=== PATIENT | male | born 1980 | race Caucasian/White ===

== ENCOUNTER → 2017-03-19 | Outpatient (CLI) | payer BC ==
[~2017-03-19] MED LIST: CLON1TAB3 PO; CNC/54 PO; FLUO40CA8 PO; LITH600C PO; LORA-741 PO; METH1TAB10 PO; METH5TAB4 PO; SERT-234 PO; TRAZ-119 PO
[2017-03-19 17:18] LABS: BASO % 0.4 %; BASO ABS # 0.03 K/uL (0-0.2); COMPLETE YES; EOS % 2.9 %; IG% 0.1 %; LYMPH % 17.4 %; LYMPH ABS # 1.19 K/uL (1.2-3.4); MEAN CELL VOLUME 82.4 fL (80-100); MEAN CORPUSCULAR HEMOGLOBIN 29.4 pg (25-34); MEAN CORPUSCULAR HGB CONC 35.7 g/dl (32-36); MEAN PLATELET VOLUME 10.4 fL (7.4-10.4); MONO % 6.6 %; NEUT % 72.6 %; PLATELET COUNT 223 K/uL (130-400); WHITE BLOOD COUNT 6.84 K/uL (4.8-10.8)
[2017-03-19 17:45] LABS: ALT/SGPT 120 U/L (12-78); AST/SGOT 38 U/L (15-37); BLOOD UREA NITROGEN 12 mg/dl (7-18); BUN/CREATININE RATIO 12.3 (10-20); CALCIUM 9.2 mg/dl (8.5-10.1); CARBON DIOXIDE 26 mmol/L (21-32); CHLORIDE 108 mmol/L (98-107); GLUCOSE 96 mg/dl (70-99); POTASSIUM 3.7 mmol/L (3.5-5.1); SODIUM 140 mmol/L (136-145)
[2017-03-19 17:56] LABS: ALB/GLOB RATIO 1.4 (0.9-2); ALKALINE PHOSPHATASE 77 U/L (45-117)
== END | disposition home or self-care (01) ==
LOC: C.LAB1850 16:26
PROVIDERS: ATTEND Psychiatry & Neurology Psychiatry
DX: F31.75 Bipolar disorder, in partial remission, most recent episode depressed (principal); F41.1 Generalized anxiety disorder; R41.840 Attention and concentration deficit; Z79.899 Other long term (current) drug therapy; E55.9 Vitamin D deficiency, unspecified

== ENCOUNTER 2017-03-23 09:04 | Emergency (ER) | payer BC ==
[~2017-03-23] VITALS: Ht 172.7 cm; Wt 105.4 kg
[~2017-03-23 09:04] MED LIST changes: -CLON1TAB3 PO; -CNC/54 PO; -FLUO40CA8 PO; -LITH600C PO; -METH1TAB10 PO; -METH5TAB4 PO
[2017-03-23 09:06] VITALS: TEMP 36.8; Ht 172.7 cm; Wt 105.4 kg
[2017-03-23] MEDS ORDERED: SODIUM CHLORIDE 0.9% 1000ML 1,000 ML IV STA (09:37)
[2017-03-23] MEDS ORDERED: CLON1TAB3 PO (09:55)
[2017-03-23] MEDS ORDERED: METH1TAB10 PO (09:55)
[2017-03-23] MEDS ORDERED: LITH600C PO (09:55)
[2017-03-23] MEDS ORDERED: FLUO40CA8 PO (09:55)
[2017-03-23] MEDS ORDERED: CNC/54 PO (09:55)
[2017-03-23] MEDS ORDERED: METH5TAB4 PO (09:55)
[2017-03-23 09:58] LABS: BASO % 0.4 %; BASO ABS # 0.02 K/uL (0-0.2); COMPLETE YES; EOS % 2.6 %; HEMATOCRIT 42.3 % (42-52); LYMPH % 20.5 %; LYMPH ABS # 1.09 K/uL (1.2-3.4); MEAN CORPUSCULAR HEMOGLOBIN 29.1 pg (25-34); MEAN CORPUSCULAR HGB CONC 35.5 g/dl (32-36); MEAN PLATELET VOLUME 10.1 fL (7.4-10.4); MONO % 6.6 %; NEUT % 69.9 %; PLATELET COUNT 203 K/uL (130-400); RED BLOOD COUNT 5.16 M/uL (4.7-6.1); WHITE BLOOD COUNT 5.33 K/uL (4.8-10.8)
[2017-03-23 10:10] LABS: PROTHROMBIN TIME (PATIENT) 10.8 SECONDS (9.0-12.0)
--- NOTE | 2017-03-23 10:12 | DIAGNOSTIC IMAGING REPORT ---
CT HEAD WITHOUT CONTRAST (CT) CLINICAL HISTORY: Altered mental status. Weakness. Lightheadedness. Confusion. COMPARISON STUDY: No previous studies for comparison. TECHNIQUE: Axial CT of the brain is performed from the vertex to the skull base. IV contrast was not administered for this examination. CT DOSE: 614.27 mGy.cm FINDINGS: No intra or extra-axial mass lesions are visualized. There is no CT evidence of acute cortical infarction. There is no evidence of midline shift. There is no acute hemorrhage. No calvarial fractures are visualized. There is no evidence of pathologic ventricular dilatation. There is no evidence of acute sinusitis IMPRESSION: Normal noncontrast head CT. Electronically signed by: Reji Maurer M.D. 03/23/2017 10:11 AM Dictated Date/Time: 03/23/2017 10:10 AM
[2017-03-23 10:17] LABS: ALT/SGPT 109 U/L (12-78); AST/SGOT 29 U/L (15-37); BLOOD UREA NITROGEN 12 mg/dl (7-18); CALCIUM 8.9 mg/dl (8.5-10.1); CARBON DIOXIDE 27 mmol/L (21-32); CHLORIDE 109 mmol/L (98-107); GLUCOSE 127 mg/dl (70-99); MAGNESIUM 2.1 mg/dl (1.8-2.4); POTASSIUM 3.5 mmol/L (3.5-5.1); SODIUM 142 mmol/L (136-145)
--- NOTE | 2017-03-23 10:24 | DIAGNOSTIC IMAGING REPORT ---
CHEST ONE VIEW PORTABLE CLINICAL HISTORY: Weakness, dizziness, altered mental status COMPARISON STUDY: 12/13/2009 FINDINGS: The cardiac silhouette is enlarged with a somewhat globular configuration. There is no focal pulmonary consolidation. There are no pleural effusions.[ IMPRESSION: Enlarged cardiac silhouette. No evidence of failure. No evidence of focal pulmonary consolidation Electronically signed by: Reji Maurer M.D. 03/23/2017 10:23 AM Dictated Date/Time: 03/23/2017 10:22 AM
[2017-03-23 10:25] LABS: ALKALINE PHOSPHATASE 79 U/L (45-117)
--- NOTE | 2017-03-23 11:02 | EMERGENCY ROOM VISIT NOTE ---
History Report prepared by Jose: Buzz Hernandez Under the Supervision of: Dr. Marco Yang D.O. First contact with patient: 09:36 Chief Complaint: DIZZY Stated Complaint: DIZINESS - LIGHTHEADED - ONE SIDED NUMBNESS Nursing Triage Summary: dizziness when I tried to walked into a room while turning the corner. it felt like the room was still but I was moving. had another episode like this last week History of Present Illness The patient is a 36 year old male who presents to the Emergency Room with complaints of dizziness that occurred this morning. He also had a similar episode of dizziness last week. When the patient woke up to go to the bathroom this morning, he turned the corner into the lavatory. He states that it then felt like the room was still but he was moving. He lost his balance and stumbled forward. He lowered himself to the ground and noticed his head felt "very weird." He tried calling his with his cell phone, but noticed that his right side was relatively numb. Once he stood back up, he felt very uneasy on his feet. This episode lasted about 45 minutes. He was told after last week' s episode, that if it occurs again, he should come to the emergency room to get checked. He takes Klonopin as needed. Source of History: patient Onset: this morning Position: other (global) Symptom Intensity: moderate Quality: other (Dizziness) Timing: resolved Modifying Factors (Worsening): movement Associated Symptoms: + numbness, No LOC, No headache Note: He experienced lightheadedness. Review of Systems See HPI for pertinent positives & negatives. A total of 10 systems reviewed and were otherwise negative. Past Medical & Surgical Medical Problems: (1) ASTHMA, UNSPECIFIED (2) BIPOLAR DISORDER, UNSPECIFIED (3) DEPRESSIVE DISORDER NEC (4) PANIC DISORDER WITHOUT AGORAPHOBIA Family History Patient reports no known family medical history. Social History Smoking Status: Never Smoker Smokeless Tobacco Use: No Drug Use: none Marital Status: Housing Status: lives with family Occupation Status: employed Current/Historical Medications Scheduled Clonazepam (Klonopin), 1 MG PO TID Fluoxetine (Prozac), 40 MG PO DAILY [place] Carbonate ([place]acra Carbonate), 1,200 MG PO DAILY Methylphenidate Hcl (Concerta), 54 MG PO DAILY Methylphenidate Hcl (Ritalin), 5 MG PO DAILY Methylphenidate Hcl (Ritalin), 10 MG PO DAILY Allergies Uncoded Allergies: NKDA (Allergy, Mild, NONE, 11/24/09) Physical Exam Vital Signs Date Time Temp Pulse Resp B/P Pulse Ox O2 Delivery O2 Flow Rate FiO2 03/23/17 11:26 80 18 135/80 98 Room Air 03/23/17 09:38 78 142/80 106 146/86 94 154/84 03/23/17 09:38 82 03/23/17 09:06 36.8 86 18 124/85 96 Room Air Physical Exam VITAL SIGNS: were reviewed as above. GENERAL:Non-toxic in appearance. SKIN: Warm dry and pink. HEAD: Normocephalic and atraumatic. OROPHARYNX: Is clear and moist NECK: Supple without lymphadenopathy or meningismus. LUNGS: clear. HEART: Regular rate and rhythm. ABDOMEN: Soft and nontender. EXTREMITIES: Warm and well perfused. NEUROLOGICALLY: Awake alert and oriented without focal deficit. Cranial nerves 2 -12 are intact. There is no pronator drift. Cerebellar testing is within normal limits. There is no nystagmus. There is no facial droop. Speech is clear. Vision is grossly normal. MUSCULOSKELETAL: Good muscle tone. No evidence of trauma. Medical Decision & Procedures ER Provider Diagnostic Interpretation: Radiology results as stated below per my review and radiologist interpretation: CT HEAD WITHOUT CONTRAST (CT) CLINICAL HISTORY: Altered mental status. Weakness. Lightheadedness. Confusion. COMPARISON STUDY: No previous studies for comparison. TECHNIQUE: Axial CT of the brain is performed from the vertex to the skull base. IV contrast was not administered for this examination. CT DOSE: 614.27 mGy.cm FINDINGS: No intra or extra-axial mass lesions are visualized. There is no CT evidence of acute cortical infarction. There is no evidence of midline shift. There is no acute hemorrhage. No calvarial fractures are visualized. There is no evidence of pathologic ventricular dilatation. There is no evidence of acute sinusitis IMPRESSION: Normal noncontrast head CT. Electronically signed by: Reji Maurer M.D. 03/23/2017 10:11 AM Dictated Date/Time: 03/23/2017 10:10 AM CHEST ONE VIEW PORTABLE CLINICAL HISTORY: Weakness, dizziness, altered mental status COMPARISON STUDY: 12/13/2009 FINDINGS: The cardiac silhouette is enlarged with a somewhat globular configuration. There is no focal pulmonary consolidation. There are no pleural effusions.[ IMPRESSION: Enlarged cardiac silhouette. No evidence of failure. No evidence of focal pulmonary consolidation Electronically signed by: Reji Maurer M.D. 03/23/2017 10:23 AM Dictated Date/Time: 03/23/2017 10:22 AM Laboratory Results 03/23/17 09:35 Red Blood Count 5.16, Mean Corpuscular Volume 82.0, Mean Corpuscular Hemoglobin 29.1, Mean Corpuscular Hemoglobin Concent 35.5, Mean Platelet Volume 10.1, Neutrophils (%) (Auto) 69.9, Lymphocytes (%) (Auto) 20.5, Monocytes (%) (Auto) 6.6, Eosinophils (%) (Auto) 2.6, Basophils (%) (Auto) 0.4, Neutrophils # (Auto) 3.73, Lymphocytes # (Auto) 1.09, Monocytes # (Auto) 0.35, Eosinophils # (Auto) 0.14, Basophils # (Auto) 0.02 03/23/17 09:35 Test 03/23/17 09:35 03/23/17 11:01 White Blood Count 5.33 K/uL (4.8-10.8) Red Blood Count 5.16 M/uL (4.7-6.1) Hemoglobin 15.0 g/dL (14.0-18.0) Hematocrit 42.3 % (42-52) Mean Corpuscular Volume 82.0 fL (80-100) Mean Corpuscular Hemoglobin 29.1 pg (25-34) Mean Corpuscular Hemoglobin Concent 35.5 g/dl (32-36) Platelet Count 203 K/uL (130-400) Mean Platelet Volume 10.1 fL (7.4-10.4) Neutrophils (%) (Auto) 69.9 % Lymphocytes (%) (Auto) 20.5 % Monocytes (%) (Auto) 6.6 % Eosinophils (%) (Auto) 2.6 % Basophils (%) (Auto) 0.4 % Neutrophils # (Auto) 3.73 K/uL (1.4-6.5) Lymphocytes # (Auto) 1.09 K/uL (1.2-3.4) Monocytes # (Auto) 0.35 K/uL (0.11-0.59) Eosinophils # (Auto) 0.14 K/uL (0-0.5) Basophils # (Auto) 0.02 K/uL (0-0.2) RDW Standard Deviation 39.7 fL (36.4-46.3) RDW Coefficient of Variation 13.1 % (11.5-14.5) Immature Granulocyte % (Auto) 0.0 % Immature Granulocyte # (Auto) 0.00 K/uL (0.00-0.02) Prothrombin Time 10.8 SECONDS (9.0-12.0) Prothromb Time International Ratio 1.0 (0.9-1.1) Activated Partial Thromboplast Time 26.4 SECONDS (21.0-31.0) Partial Thromboplastin Ratio 1.0 Anion Gap 6.0 mmol/L (3-11) Est Creatinine Clear Calc Drug Dose 121.3 ml/min Estimated GFR () 112.5 Estimated GFR (Non- 97.1 BUN/Creatinine Ratio 12.0 (10-20) Calcium Level 8.9 mg/dl (8.5-10.1) Magnesium Level 2.1 mg/dl (1.8-2.4) Total Bilirubin 0.8 mg/dl (0.2-1) Direct Bilirubin 0.1 mg/dl (0-0.2) Aspartate Amino Transf (AST/SGOT) 29 U/L (15-37) Alanine Aminotransferase (ALT/SGPT) 109 U/L (12-78) Alkaline Phosphatase 79 U/L (45-117) Total Creatine Kinase 63 U/L (39-308) Creatine Kinase MB 0.6 ng/ml (0.5-3.6) Creatine Kinase MB Ratio 1.0 (0-3.0) Troponin I < 0.015 ng/ml (0-0.045) Total Protein 7.3 gm/dl (6.4-8.2) Albumin 4.3 gm/dl (3.4-5.0) Lipase 108 U/L (73-393) Thyroid Stimulating Hormone (TSH) 1.020 uIu/ml (0.300-4.500) Urine Color YELLOW Urine Appearance CLEAR (CLEAR) Urine pH 7.5 (4.5-7.5) Urine Specific [place] 1.014 (1.000-1.030) Urine Protein NEG (NEG) Urine Glucose (UA) NEG (NEG) Urine Ketones NEG (NEG) Urine Occult Blood NEG (NEG) Urine Nitrite NEG (NEG) Urine Bilirubin NEG (NEG) Urine Urobilinogen NEG (NEG) Urine Leukocyte Esterase NEG (NEG) Urine WBC (Auto) 1-5 /hpf (0-5) Urine RBC (Auto) 0-4 /hpf (0-4) Urine Hyaline Casts (Auto) 0 /lpf (0-5) Urine Epithelial Cells (Auto) 0-5 /lpf (0-5) Urine Bacteria (Auto) NEG (NEG) Laboratory results as stated above per my review. Medications Administered Medications (Trade) Dose Ordered Sig/Vannesa Route Start Time Stop Time Status Last Admin Dose Admin Sodium Chloride (Nss 1000ml) 1,000 ml @ 999 mls/hr Q1H1M STAT IV 03/23/17 09:37 03/23/17 10:37 DC 03/23/17 09:37 999 MLS/HR ECG Indication: other (Dizziness) Rate (beats per minute): 82 Rhythm: normal sinus Findings: no acute ischemic change, no ectopy ED Course 0936: Previous medical records were reviewed. The patient was evaluated in room B12. A complete history and physical examination was performed. 0937: Ordered Sodium Chloride 1000 ml @ 999 mls/hr IV 1105: On reevaluation, the patient is resting. I discussed the results and findings with the patient. He verbalized agreement of the treatment plan. He was discharged home. Medical Decision Differential includes acute coronary syndrome, myocardial infarction, CVA, TIA, anemia, infection, pneumonia, UTI, pyelonephritis, poor nutrition, dehydration, electrolyte disturbance, hypoglycemia. This is a 36-year-old male who presents to the ED with a chief complaint of dizziness. This patient states that he was at home this morning and walking to the bathroom when he felt like he lost control himself. The patient states that he somewhat fell but was able to brace himself and lowered himself to the ground. He denies injury. The patient states that he felt a little unusual in his head for about 25-40 minutes afterwards. He states that he had one prior episode where he wrote an email to his boss that was not completely well written and he lost about 27 hours of his day. He has an appointment to see his PCP later today for follow-up on this. The patient has no other complaints this time and feels normal at this time. His vital signs are normal. His physical exam and neurologic exam was normal. CT scan of the brain did not show acute process. A chest x-ray showed a slightly enlarged heart but otherwise no acute process. CBC, TSH, troponin and complete metabolic panel are unremarkable. The patient was told results. He is felt to be stable for discharge. Outpatient echocardiogram and neurology follow-up might be beneficial. Impression Primary Impression: Dizziness Scribe Attestation The scribe's documentation has been prepared under my direction and personally reviewed by me in its entirety. I confirm that the note above accurately reflects all work, treatment, procedures, and medical decision making performed by me. Departure Information Dispostion Home / Self-Care Referrals Piedad Moore C.R.N.P. (PCP) Forms HOME CARE DOCUMENTATION FORM, IMPORTANT VISIT INFORMATION Patient Instructions My [facility] Additional Instructions Your chest x-ray today revealed a slightly enlarged heart. It is unclear if this is significant or related to your symptoms. An outpatient echocardiogram might be beneficial for further evaluation of this. Talk to your doctor about this. Neurology follow-up is recommended for further evaluation of your symptoms. Follow-up with your doctor today as scheduled. Talk to them about the results of your tests.
[2017-03-23 11:26] VITALS: BP 135/80; PULSE 80; O2SAT 98
[2017-03-23 11:26] LABS: URINE APPEARANCE CLEAR (CLEAR); URINE BILIRUBIN NEG (NEG); URINE COLOR YELLOW; URINE EPITHELIAL CELL AUTO 0-5 /lpf (0-5); URINE NITRITE NEG (NEG); URINE PH 7.5 (4.5-7.5); URINE SPECIFIC GRAVITY 1.014 (1.000-1.030); UROBILINOGEN NEG (NEG); ZZUR CULT IF INDIC CLEAN CATCH NO
[2017-03-23 11:27] LABS: MANUAL MICROSCOPIC REQUIRED? NO; REVIEW REQ? NO
== END 2017-03-23 11:32 | disposition home or self-care (01) ==
LOC: C.EDB 09:05
DX: R42 Dizziness and giddiness (principal); J45.909 Unspecified asthma, uncomplicated; F31.9 Bipolar disorder, unspecified; F33.41 Major depressive disorder, recurrent, in partial remission

== ENCOUNTER → 2017-05-07 | Outpatient (CLI) | payer BC ==
[~2017-05-07] MED LIST changes: +CLON1TAB3 PO; +CNC/54 PO; +FLUO40CA8 PO; +GADAVIST IV PRN; +LITH600C PO; -LORA-741 PO; +METH1TAB10 PO; +METH5TAB4 PO; -SERT-234 PO; -TRAZ-119 PO
--- NOTE | 2017-05-07 09:08 | DIAGNOSTIC IMAGING REPORT ---
NECK MRA HISTORY: R42 DfhyppfikN34.0 AkhcorswS70.3 Memory lossR51 [id number] TECHNIQUE: Irso-pj-zzbavp and gadolinium-enhanced MRA of the neck was performed both before and after the intravenous administration of contrast. All measurements were calculated based on NASCET criteria. COMPARISON STUDY: None. FINDINGS: The aortic arch and proximal great vessels are widely patent. There is no significant stenosis, occlusion, or dissection identified within the bilateral common carotid, internal carotid, or vertebral arteries. IMPRESSION: No significant stenosis, occlusion, or dissection identified within the carotid or vertebral arteries. Electronically signed by: Reji Maurer M.D. 05/07/2017 9:06 AM Dictated Date/Time: 05/07/2017 9:05 AM
--- NOTE | 2017-05-07 09:13 | DIAGNOSTIC IMAGING REPORT ---
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 Electronically signed by: Giovanni Valdez M.D. 05/19/2017 12:07 PM Dictated Date/Time: 05/14/2017 1:28 PM ORIGINAL REPORT Brain MRA HISTORY: Headaches R42 UdehdqvmqO45.0 KxlgutdiI36.3 Memory lossR51 [id number] TECHNIQUE: 3-D reud-rv-fryzef MRA of the brain was performed without contrast. COMPARISON STUDY: None. FINDINGS: 2.5 cm aneurysm of the anterior communicating artery at the origins of the right as well as left middle cerebral vascular distribution. Slight ectasia of the mid and middle cerebral arteries bilaterally although a second aneurysm is not identified. Anterior middle and posterior cerebral circulation. A be unremarkable. The vertebral basilar system is unremarkable. There is no significant stenotic process. IMPRESSION: 1. 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 2. Subtle scattered additional areas of ectasia. 3. No additional areas of true aneurysm formation or stenotic change. Electronically signed by: Giovanni Valdez M.D. 05/07/2017 9:12 AM Dictated Date/Time: 05/07/2017 9:06 AM
--- NOTE | 2017-05-07 10:50 | DIAGNOSTIC IMAGING REPORT ---
BRAIN COMBO HISTORY: 36-year-old male presents with memory loss, blurred vision and slurred speech. Recent fall with right-sided numbness. COMPARISON: CT head 03/23/2017, MRA head and neck 05/07/2017. TECHNIQUE: Multiplanar multisequence MRI of the brain was obtained both with and without the use of 10 mL gadavist. FINDINGS: There is no restricted diffusion to suggest acute ischemia. The soft tissues about the neck appear unremarkable on the foot orthopedist images. Midline structures including the corpus callosum, brainstem, optic chiasm and pituitary gland appear to be within normal limits on the sagittal T1 series. No cerebellar tonsillar herniation. No abnormal T2/FLAIR signal abnormality identified within the brain. Ventricles, cisterns and sulci are within normal limits. No mass, hydrocephalus, abnormal extra-axial collection or hemorrhage. No abnormal enhancement. The vascular flow voids at the level of the skull base appear patent. There is minimal mucosal thickening of the anterior left ethmoid air cells. The mastoid air cells and remaining sinuses are clear. IMPRESSION: 1. No acute intracranial abnormality. Negative for hemorrhage or acute ischemia. 2. No abnormal enhancement. 3. Minimal left ethmoid sinus disease. Electronically signed by: Jose Angel Sevilla 05/07/2017 9:55 AM Dictated Date/Time: 05/07/2017 9:06 AM
== END | disposition home or self-care (01) ==
LOC: C.MRI 07:19
PROVIDERS: ATTEND Physician Assistant
DX: R42 Dizziness and giddiness (principal); R41.3 Other amnesia; R20.0 Anesthesia of skin; R51 Headache

== ENCOUNTER → 2017-05-15 | Outpatient (CLI) | payer BC ==
[~2017-05-15] MED LIST changes: -GADAVIST IV PRN
--- NOTE | 2017-05-16 17:31 | EEG Procedure Note ---
EEG Procedure Note Date of Service May 15, 2017. Start / End Times Start Time: 1:26 PM End Time: 1:46 PM Referring Physician Allison Case History This is a 36-year-old male with dizziness, headache, memory loss, and numbness. EEG for further evaluation of possible seizure etiology Home Medication List Scheduled Clonazepam (Klonopin), 1 MG PO TID Fluoxetine (Prozac), 40 MG PO DAILY [place] Carbonate ([place] Carbonate), 1,200 MG PO DAILY Methylphenidate Hcl (Concerta), 54 MG PO DAILY Methylphenidate Hcl (Ritalin), 5 MG PO DAILY Methylphenidate Hcl (Ritalin), 10 MG PO DAILY Description This is a 21 electrode EEG with a single channel dedicated to limited EKG. The electrodes were placed in accordance with the International 10-20 system. At the start of the recording the patient was in an awake state. Background was well organized and composed of symmetric mixed alpha and beta frequencies. There was a symmetric well-formed moderate amplitude 10-11 Hz posterior dominant rhythm that was reactive to eye opening and closure. Hyperventilation with good effort produced no abnormalities. Intermittent photic stimulation at various frequencies produced no abnormalities. Sleep was indicated by vertex waves and symmetric sleep spindles. Interpretation This is a normal awake and asleep routine EEG. There was no electrographic seizures or epileptiform discharges. Clinical Correlation A normal EEG does not rule out epilepsy if there is a strong clinical suspicion.
== END | disposition home or self-care (01) ==
LOC: C.NEUR 13:00
PROVIDERS: ATTEND Physician Assistant
DX: R42 Dizziness and giddiness (principal); R51 Headache; R41.3 Other amnesia; R20.0 Anesthesia of skin

== ENCOUNTER → 2017-05-16 | Outpatient (CLI) | payer BC ==
--- NOTE | 2017-05-16 12:17 | DIAGNOSTIC IMAGING REPORT ---
HEAD CTA HISTORY: Mental status change aneurysm TECHNIQUE: Multiaxial CT images of the head were performed both before and after the intravenous administration of contrast to evaluate the major cerebral vessels. Maximum intensity projection images were also obtained. COMPARISON: MRA dated 05/07/2017 FINDINGS: There is no mass, hematoma, midline shift, or acute infarct. Visualized intracranial internal carotid arteries, distal vertebral arteries, and basilar artery are widely patent. There is no significant stenosis, occlusion, or aneurysm seen within the bilateral ACAs, MCAs, or collections assistant. The previously described 2.5 mm aneurysm of the anterior communicating artery appears to be related to vascular ectasia. True aneurysm is not identified. IMPRESSION: 1. Negative CT of the brain. 2. Intracranial vascular is considered negative. 3. Previously described 2.5 mm aneurysm of the anterior communicating artery appears to relate to overlap artifact and slight vascular ectasia. Electronically signed by: Giovanni Valdez M.D. 05/16/2017 12:15 PM Dictated Date/Time: 05/16/2017 12:10 PM
== END | disposition home or self-care (01) ==
LOC: C.CTS 11:28
PROVIDERS: ATTEND Physician Assistant
DX: R90.89 Other abnormal findings on diagnostic imaging of central nervous system (principal)

== ENCOUNTER → 2017-10-12 | Outpatient (CLI) | payer BC ==
--- NOTE | 2017-10-12 10:39 | DIAGNOSTIC IMAGING REPORT ---
CHEST 2 VIEWS ROUTINE CLINICAL HISTORY: R05,R06.02,M54.9 dyspnea. Fever. Chest pain. COMPARISON STUDY: 03/23/2017 FINDINGS: The bones soft tissues and hemidiaphragms are normal. The cardiomediastinal silhouette is normal. The lungs are clear. The pulmonary vasculature is normal. IMPRESSION: Negative chest. The above report was generated using voice recognition software. It may contain grammatical, syntax or spelling errors. Electronically signed by: Giovanni Valdez M.D. 10/12/2017 10:38 AM Dictated Date/Time: 10/12/2017 10:37 AM
== END | disposition home or self-care (01) ==
LOC: C.RAD1850 10:28
PROVIDERS: ATTEND Nurse Practitioner Family
DX: R05 Cough (principal); R06.02 Shortness of breath; M54.9 Dorsalgia, unspecified

== ENCOUNTER → 2017-10-25 | Outpatient (CLI) | payer BC | END | disposition home or self-care (01) | LOC: C.PATHSPEC 18:17 | PROVIDERS: ATTEND Urology | DX: Z30.2 Encounter for sterilization (principal) ==

== ENCOUNTER → 2017-11-19 | Outpatient (CLI) | payer OTHER ==
[2017-11-19 18:50] LABS: BASO % 0.5 %; BASO ABS # 0.03 K/uL (0-0.2); EOS % 2.4 %; EOS ABS # 0.16 K/uL (0-0.5); HEMATOCRIT 40.2 % (42-52); HEMOGLOBIN 14.2 g/dL (14.0-18.0); IG# 0.01 K/uL (0.00-0.02); LYMPH % 22.3 %; LYMPH ABS # 1.46 K/uL (1.2-3.4); MEAN CELL VOLUME 82.4 fL (80-100); MEAN CORPUSCULAR HEMOGLOBIN 29.1 pg (25-34); MEAN CORPUSCULAR HGB CONC 35.3 g/dl (32-36); MEAN PLATELET VOLUME 10.7 fL (7.4-10.4); MONO % 6.6 %; MONO ABS # 0.43 K/uL (0.11-0.59); NEUT ABS # 4.45 K/uL (1.4-6.5); PLATELET COUNT 223 K/uL (130-400); RED CELL DISTRIBUTION WIDTH CV 12.9 % (11.5-14.5); RED CELL DISTRIBUTION WIDTH SD 38.6 fL (36.4-46.3); WHITE BLOOD COUNT 6.54 K/uL (4.8-10.8)
[2017-11-19 19:18] LABS: BLOOD UREA NITROGEN 11 mg/dl (7-18); CREATININE 1.06 mg/dl (0.60-1.40); GLUCOSE 104 mg/dl (70-99)
[2017-11-19 19:19] LABS: ALBUMIN 4.1 gm/dl (3.4-5.0); ALT/SGPT 95 U/L (12-78); AST/SGOT 26 U/L (15-37); CALCIUM 8.6 mg/dl (8.5-10.1); CARBON DIOXIDE 27 mmol/L (21-32); POTASSIUM 3.5 mmol/L (3.5-5.1); SODIUM 137 mmol/L (136-145)
[2017-11-19 19:29] LABS: ALKALINE PHOSPHATASE 72 U/L (45-117); TOTAL PROTEIN 7.1 gm/dl (6.4-8.2)
== END | disposition home or self-care (01) ==
LOC: C.LAB 17:33
PROVIDERS: ATTEND Psychiatry & Neurology Psychiatry
DX: F31.75 Bipolar disorder, in partial remission, most recent episode depressed (principal); F41.1 Generalized anxiety disorder; R41.840 Attention and concentration deficit; Z79.899 Other long term (current) drug therapy